=== PATIENT | male | born 1990 | race Caucasian/White ===

== ENCOUNTER 2020-05-30 11:29 | Inpatient (IN) | payer OTHER ==
[~2020-05-30] VITALS: Ht 167.6 cm; Wt 72.7 kg
[2020-05-30] MEDS ORDERED: SERT50TA12 PO (12:00)
[2020-05-30 12:29] LABS: BASOPHILS % (AUTO) 0.3 % (0.0-2.0); EOSINOPHILS % (AUTO) 2.9 % (1.0-6.0); HEMATOCRIT 40.6 % (41-53); LYMPHOCYTES # (AUTO) 1.7 K/uL (1.0-4.8); LYMPHOCYTES % (AUTO) 33.1 % (22.0-44.0); MEAN CORPUSCULAR HEMOGLOBIN 30.8 pg (26.0-34.0); MEAN CORPUSCULAR HGB CONC 34.5 G/dL (31.0-37.0); MEAN CORPUSCULAR VOLUME 89 fL (80-100); MONOCYTES # (AUTO) 0.7 K/uL (0.1-1.0); MONOCYTES % (AUTO) 13.9 % (2.0-9.0); NEUTROPHILS # (AUTO) 2.5 K/uL (1.8-7.7); NEUTROPHILS % (AUTO) 49.8 % (40.0-70.0); PLATELET COUNT (AUTO) 269 K/uL (150-450); RED BLOOD CELL COUNT(AUTO) 4.55 MIL/uL (4.50-5.90); RED CELL DISTRIBUTION WIDTH 12.7 % (11.5-14.5)
[2020-05-30 12:42] LABS: ANION GAP 5 mmol/L (8-16); CALCIUM, TOTAL 8.6 mg/dL (8.8-10.5); CARBON DIOXIDE 29 mmol/L (22-29); CHLORIDE 103 mmol/L (98-107); CREATININE 0.81 mg/dL (0.60-1.30); GLOMERULAR FILTR. RATE CALC > 60 mL/min (>60); GLUCOSE,RANDOM 99 mg/dL (70-110); POTASSIUM 3.9 mmol/L (3.5-5.1); SODIUM SERUM 137 mmol/L (136-145); UREA NITROGEN, BLOOD 7 mg/dL (7-18)
[2020-05-30] MEDS ORDERED: MAGNESIUM HYDROXIDE SUSPENSION 30 ML UDCUP PO PRN (12:45)
[2020-05-30] MEDS ORDERED: ACETAMINOPHEN 325 MG TABLET PO PRN (12:45)
[2020-05-30 12:48] LABS: ALANINE AMINOTRANSFERASE 22 U/L (12-78); ALBUMIN 3.2 g/dL (3.4-5.0); ALKALINE PHOSPHATASE 67 U/L (46-116); ASPARTATE AMINOTRANSFERASE 27 U/L (15-37); BILIRUBIN,TOTAL 0.4 mg/dL (0.1-1.0); TOTAL PROTEIN, SERUM 6.8 g/dL (6.4-8.2)
[2020-05-30 13:41] LABS: AMPHET/METH SCREEN,URINE POSITIVE (NEGATIVE); BARBITURATE SCREEN, URINE NEGATIVE (NEGATIVE); BENZODIAZEPINES SCREEN,URINE NEGATIVE (NEGATIVE); CANNABINOID SCREEN,URINE NEGATIVE (NEGATIVE); COCAINE SCREEN,URINE NEGATIVE (NEGATIVE); METHADONE SCREEN, URINE NEGATIVE (NEGATIVE); OPIATE SCREEN,URINE NEGATIVE (NEGATIVE)
[2020-05-30 13:42] LABS: PHENCYCLIDINE SCREEN,URINE NEGATIVE (NEGATIVE)
[2020-05-30 18:24] LABS: COVID AG,FIA SOURCE NASOPHARYNGEAL
[2020-05-30 19:13] VITALS: BP 106/57
[2020-05-31 04:44] VITALS: BP 140/65
[2020-05-31 07:54] VITALS: BP 108/75
[2020-05-31] MEDS: FAMOTIDINE 20 MG TABLET PO SCH (09:03)
[2020-05-31] MEDS: SERTRALINE HCL 50 MG TABLET PO SCH (11:19)
[2020-05-31] MEDS: RisperiDONE 1 MG TABLET PO SCH ×2 (11:19→20:08)
[2020-05-31 15:20] VITALS: BP 99/53
[2020-05-31 19:39] VITALS: BP 136/48
[2020-06-01 04:05] VITALS: BP 110/60
[2020-06-01 07:22] VITALS: BP 101/54
[2020-06-01] MEDS: RisperiDONE 1 MG TABLET PO SCH ×2 (08:26→20:37)
[2020-06-01] MEDS: FAMOTIDINE 20 MG TABLET PO SCH (08:26)
[2020-06-01] MEDS: SERTRALINE HCL 50 MG TABLET PO SCH (08:26)
[2020-06-01 15:01] VITALS: BP_SYST 118; BP_DIAS 5; BP_DIAS 58
[2020-06-01 19:52] VITALS: BP 113/63
[2020-06-02 04:28] VITALS: BP 111/65
[2020-06-02 07:24] VITALS: BP 104/51
[2020-06-02] MEDS: SERTRALINE HCL 50 MG TABLET PO SCH (07:54)
[2020-06-02] MEDS: FAMOTIDINE 20 MG TABLET PO SCH (07:54)
[2020-06-02] MEDS: RisperiDONE 1 MG TABLET PO SCH (07:54)
[2020-06-02] MEDS ORDERED: TraZODone HCL 50 MG TABLET PO PRN (11:30)
[2020-06-02 19:57] VITALS: BP 100/58
[2020-06-02] MEDS: RisperiDONE 2 MG TABLET PO SCH (20:34)
[2020-06-03 04:57] VITALS: BP 118/58
[2020-06-03] MEDS: RisperiDONE 1 MG TABLET PO SCH (08:41)
[2020-06-03] MEDS: SERTRALINE HCL 50 MG TABLET PO SCH (08:41)
[2020-06-03] MEDS: FAMOTIDINE 20 MG TABLET PO SCH (08:41)
[2020-06-03 19:46] VITALS: BP 106/52
[2020-06-03] MEDS: RisperiDONE 2 MG TABLET PO SCH (22:11)
[2020-06-04 04:42] VITALS: BP 109/58
[2020-06-04] MEDS: SERTRALINE HCL 50 MG TABLET PO SCH (08:11)
[2020-06-04] MEDS: FAMOTIDINE 20 MG TABLET PO SCH (08:11)
[2020-06-04] MEDS: RisperiDONE 1 MG TABLET PO SCH (08:11)
[2020-06-04 08:21] VITALS: BP 110/66
[2020-06-04 16:09] VITALS: BP 111/58
[2020-06-04 19:58] VITALS: BP 112/52
[2020-06-04] MEDS: RisperiDONE 2 MG TABLET PO SCH (21:45)
[2020-06-05 08:02] VITALS: BP 113/65
[2020-06-05] MEDS: SERTRALINE HCL 50 MG TABLET PO SCH (08:11)
[2020-06-05] MEDS: RisperiDONE 1 MG TABLET PO SCH (08:11)
[2020-06-05] MEDS: FAMOTIDINE 20 MG TABLET PO SCH (08:12)
[2020-06-05] MEDS ORDERED: RISP2TAB45 PO (10:35)
[2020-06-05] MEDS ORDERED: RISP1TAB48 PO (10:35)
== END 2020-06-05 12:15 | DRG 885 ==
LOC: EMS 11:34 → 6S 12:35
PROVIDERS: ADMIT Internal Medicine; ATTEND Internal Medicine
DX: F20.9 Schizophrenia, unspecified (principal); R45.851 Suicidal ideations; F15.10 Other stimulant abuse, uncomplicated; Z20.828 Contact with and (suspected) exposure to other viral communicable diseases; F14.90 Cocaine use, unspecified, uncomplicated; F41.9 Anxiety disorder, unspecified
CPT/HCPCS: 87426; G0480